=== PATIENT | female | born 1970 | race Caucasian/White ===

== ENCOUNTER 2020-01-21 16:31 | Emergency (ER) | payer OTHER, SELFPAY ==
[2020-01-21 16:32] VITALS: BP 101/59; PULSE 115; RESP 20; TEMP 35.9; BMI 36.0
--- NOTE | 2020-01-21 17:29 | EKG12_ITS ---
Test Reason : ABD PAIN Blood Pressure : / mmHG Vent. Rate : 099 BPM Atrial Rate : 099 BPM P-R Int : 130 ms QRS Dur : 074 ms QT Int : 350 ms P-R-T Axes : 026 021 013 degrees QTc Int : 449 ms Normal sinus rhythm Nonspecific T wave abnormality Abnormal ECG Confirmed by ANNETTE SIERRA ([id number]), legal editor JOÃO OROZCO ([id number]) on 01/23/2020 3:03:30 PM Referred By: Confirmed By:ANNETTE SIERRA
[2020-01-21] MEDS: Mag Hydrox/Al Hydrox/Simeth 30 ML UDC PO (17:51)
[2020-01-21] MEDS: Ondansetron 4 MG/2 ML Vial IV (17:52)
[2020-01-21 17:54] LABS: Absolute Lymphocyte Count 1.22 X10^3/uL (0.83-4.51); Absolute Neutrophil Count 12.7 X10^3/uL (2.0-7.7); Basophil# 0.06 X10^3/uL; Basophil% 0.4 % (0-1); Eosinophil# 0.09 X10^3/uL; Eosinophils% 0.6 % (0-5); Hematocrit 43.2 % (37-47); Hemoglobin 14.2 g/dL (12.0-15.0); Lymphocyte # 1.22 X10^3/ul (4.0); Lymphocyte % 8.1 % (19-41); Mean Corp Hgb Conc 32.9 g/dL (32-36); Mean Corpuscular Hgb 31.5 pg (27.0-32.0); Mean Corpuscular Volume 95.8 fL (81-99); Mean Platelet Vol. 9.7 fl (6.2-12.0); Monocyte# 0.97 X10^3/uL; Monocyte% 6.4 % (0-10); NRBC Flagged by Analyzer 0 % (0-5); Neutrophil # 12.65 X10^3/uL (2.7-7.7); Neutrophil % 84.2 % (47-70); Platelet Count 391 K/mm3 (150-450); RBC Distribution Width CV 11.7 % (11.6-14.6); RBC Distribution Width SD 41.3 fl (35.1-43.9); Red Blood Count 4.51 M/mm3 (4.2-5.4)
[2020-01-21 18:07] LABS: AST(SGOT) 39 U/L (15-37); Alanine Aminotransfer ALT/SGPT 55 U/L (13-56); Albumin, Serum 3.9 g/dL (3.2-5.0); Alkaline Phosphatase 101 U/L (45-117); Anion Gap 6 (5-15); BUN 13 mg/dL (7-18); BUN/Creat Ratio 12.5 RATIO (10-20); Calcium,Total 9.5 mg/dL (8.5-10.1); Chloride 106 mmol/L (98-107); Creatinine, Serum 1.04 mg/dL (0.55-1.02); EST Glomerular Filtration Rate 59 mL/min (>60); Est Glom Filt Rate - Afr Amer 72 mL/min (>60); Estimated Creatinine Clearance 62.93 ml/min; Globulin 3.9 g/dL (2.2-4.2); Glucose 102 mg/dL (74-106); Lipase 126 U/L (73-393); Protein, Total 7.8 g/dL (6.4-8.2); Sodium Level 139 mmol/L (136-145)
--- NOTE | 2020-01-21 19:09 | ED.DCSUM_ITS ---
- ER Visit Summary Date of Service: 01/21/20 Chief Complaint: Abdominal pain History of Present Illness: The patient is a 49 F presenting with abdominal pain. Patient states this started earlier this morning. She states she ate a breakfast burrito which she believed was gluten-free. Her pain started foll owing this meal. She has had nausea, vomiting, diarrhea. She has history of celiac disease and typically watches her diet. She denies chest pain or shortness of breath. Denies fever. Denies other complaints. Physical Examination: Vitals are stable. Patient is afebrile. Alert no acute distress. HEENT exam is unremarkable. Neck is supple. Lungs are clear and equal bilaterally. Heart is regular rate and rhythm. Abdomen is soft nontender nondistended. No rebound or guarding. Extremities are unremarkable. Skin is warm and dry. No focal neurologic deficit. Remainder of exam is unremarkable. Emergency Department Course and Treatment: EKG is sinus rate of 99 with nonspecific T wave changes. CBC shows a white count of 15.0. Chemistries unremarkable other than AST 39. Lipase is 126. Troponin is negative. Patient was given Zofran, GI cocktail. On reevaluation she is feeling much improved. Repeat troponin was obtained and is negative. Patient feels improved and is comfortable with discharge home. She will follow-up with her primary care physician. Advised return to ED for worsening complaints. Disposition: Discharge home Impression: Abdominal pain This note was generated with [employer] dictation software. It may contain incorrect words, spelling, and punctuation that were not noted in review of the chart prior to signing ED Disposition - Plan for ED Patient: Referrals: Care Physician,No Primary [Primary Care Provider] -
[2020-01-21 19:46] VITALS: BP 113/79; PULSE 98; RESP 16; TEMP 36.8; O2SAT 95
[2020-01-21 20:33] VITALS: BP 113/79; RESP 14; O2SAT 99
--- NOTE | 2020-01-21 20:34 | ED.DEP ---
ED Disposition - Plan for ED Patient: Instructions: ED Abdominal Pain Unkn Cause Fem Referrals: Baldo Medina DO [NON CLINICAL AFFILIATE] -
== END 2020-01-21 20:47 | disposition home or self-care (01) ==
LOC: ED 17:48
PROVIDERS: Emergency Provider Emergency Medicine
DX: R10.9 Unspecified abdominal pain (principal); R11.2 Nausea with vomiting, unspecified; R19.7 Diarrhea, unspecified
CPT/HCPCS: 80053; 83690; 84484; 85025; 93005; 96374; 99283; A4216; J2405

== ENCOUNTER 2020-11-30 12:08 | Emergency (ER) | payer OTHER, SELFPAY ==
[2020-11-30 12:08] VITALS: BP 109/70; PULSE 65; RESP 15; TEMP 36.4; O2SAT 99; BMI 34.4
[2020-11-30] MEDS: 0.9% Normal Saline 1,000 ML 1000 ML IV (13:21)
[2020-11-30 13:22] LABS: Absolute Lymphocyte Count 0.81 X10^3/uL (0.83-4.51); Basophil# 0.02 X10^3/uL; Basophil% 0.2 % (0-1); Hematocrit 44.4 % (37-47); Hemoglobin 14.9 g/dL (12.0-15.0); Lymphocyte # 0.81 X10^3/ul (4.0); Mean Corp Hgb Conc 33.6 g/dL (32-36); Mean Corpuscular Hgb 32.7 pg (27.0-32.0); Mean Corpuscular Volume 97.6 fL (81-99); Mean Platelet Vol. 10.3 fl (6.2-12.0); Monocyte% 2.2 % (0-10); NRBC Flagged by Analyzer 0 % (0-5); Neutrophil # 7.99 X10^3/uL (2.7-7.7); Neutrophil % 88.3 % (47-70); Platelet Count 324 K/mm3 (150-450); RBC Distribution Width CV 11.9 % (11.6-14.6); RBC Distribution Width SD 42.4 fl (35.1-43.9); Red Blood Count 4.55 M/mm3 (4.2-5.4); White Blood Count 9.1 K/mm3 (4.4-11.0)
[2020-11-30] MEDS: Ondansetron 4 MG/2 ML Vial IV (13:22)
[2020-11-30] MEDS: Morphine 4 MG/ML Syringe IV (13:22)
--- NOTE | 2020-11-30 13:33 | ED.DCSUM_ITS ---
History of Present Illness Chief Complaint: Nausea/Vomiting Informant: Patient, Significant Other Onset: Hours Context: Sudden Onset Timing: Continuous Quality: Nausea and vomiting with bilateral upper abdominal pain Location: Bilateral upper abdominal pain Current Severity: Mild Maximum Severity: Moderate Worsened by: Vomiting Relieved by: Nothing Associated Symptoms: Chills Narrative: Patient is a 50-year-old woman who presents with bilateral upper abdominal pain with nausea and vomiting that started at 0300. She states she is vomiting more than 10 times. Emesis has greenish-yellow appearance. She denies intolerance to any foods. She denies history of liver or gallbladder disease. She denies blood or coffee-ground in her emesis. She had one bowel movement that was formed today. She denies fever. She does report malaise and weakness. She denies ocular, visual auditory symptoms. She denies cardiac symptoms. She denies respiratory symptoms. She denies dysuria, frequency, urgency or hematuria. There is no history of trauma. Prior similar symptoms: No Recent Illness/Hospitalization: No - Past Medical History (1) No significant past medical history Status: Acute Past Medical History - Allergies and Home Meds Allergies/Adverse Reactions: Allergies No Known Allergies Allergy (Verified 01/21/20 16:35) Primary Care Physician: Care Physician,No Primary [Primary Care Provider] - Prior records reviewed: Yes Surgical History: no surgical history Lives: With Family Smoking Status: Never smoker Alcohol: Rare Drugs: None Review of Systems General: Reports: Chills, Malaise. Denies: Fever, Subjective, Sweats Eyes: Denies: Visual changes - bilaterally, Blurred Vision - bilaterally ENT: Denies: Rhinorrhea, Sore throat Cardiovascular: Denies: Chest pain, Palpitations Respiratory: Denies: Dyspnea, Cough, Dyspnea on exertion Gastrointestinal: Reports: Abdominal pain, Nausea, Vomiting. Denies: Diarrhea, Constipation, Melena, Hematochezia Genitourinary: Denies: Dysuria, Hematuria, Frequency Musculoskeletal: Denies: Myalgias, Arthralgias, Neck pain, Back pain, Swelling, Extremity Pain, -, - Skin: Denies: Rash, Wounds Neurological: Denies: Headache, Weakness, Numbness Hematologic: Denies: Easy bruising, Easy bleeding Physical Exam Vital Signs/Narrative: Vital Signs Temp Pulse Resp BP Pulse Ox 11/30/20 12:08 97.6 F L 65 15 109/70 99 Inital Vital Signs reviewed: Yes General: Well nourished, Well developed, Obese Head: Normocephalic, Atraumatic Eyes: Perrl, EOMI. Negative for: Pale conjunctiva, Scleral icterus ENT: No rhinorrhea, TM's clear, Dry mucous membranes Neck: Supple, Nontender, No lymphadenopathy, No JVD Cardiovascular: Regular rate, Regular rhythm, No murmurs, Normal S1, Normal S2 Respiratory: No distress, CTA bilaterally Abdomen: Soft, Nontender, Nondistended, No masses, Hypoactive bowel sounds. Negative for: Normal bowel sounds, Hepatomegaly, Splenomegaly, Mass, Pulsatile mass Rectal: Deferred Back: Nontender, Normal Inspection Extremities: Nontender, No edema Skin: Normal color, No rash Neurological: Alert, Oriented x3, Cranial nerves II-XII grossly intact, Normal Strength, Normal Sensation Psychological: Normal affect, Normal Mood Diagnostic/Tx/Re-eval Laboratory Results 11/30/20 11/30/20 12:34 12:34 WBC 9.1 RBC 4.55 Hgb 14.9 Hct 44.4 MCV 97.6 MCH 32.7 H MCHC 33.6 RDW Std Deviation 42.4 RDW Coeff of Adelso 11.9 Plt Count 324 MPV 10.3 Immature Gran % (Auto) 0.300 Neut % (Auto) 88.3 H Lymph % (Auto) 9.0 L [place] % (Auto) 2.2 Eos % (Auto) 0.0 Baso % (Auto) 0.2 Absolute Neuts (auto) 8.0 H Absolute Lymphs (auto) 0.81 L Nucleated RBC % 0 Sodium 141 Potassium 3.6 Chloride 108 H Carbon Dioxide 27.0 Anion Gap 6 BUN 10 Creatinine 0.92 Estim Creat Clear Calc 70.35 Est GFR (MDRD) Af Amer 83 Est GFR (MDRD) Non-Af 68 BUN/Creatinine Ratio 10.9 Glucose 121 H Calcium 8.8 Total Bilirubin 0.50 Direct Bilirubin 0.11 AST 26 ALT 54 Alkaline Phosphatase 95 Total Protein 7.3 Albumin 3.9 Globulin 3.4 Lipase 92 Patient was reassessed at 1500. She is had no vomiting. She feels better. She looks better. She is no longer pale. She has color to her face. Plan is to discharge with prescription for Bentyl and Zofran. - Medical Decision Making With upper abdominal pain wrapping around her back with nausea and vomiting need to rule out liver disease, biliary disease versus viral infectious disease. IV was established. She is clinically dehydrated and received 1 L of normal saline. She was medicated with Zofran and morphine. Appropriate blood work was ordered. ED Disposition - Plan for ED Patient: Disposition: Home or Assisted Living Diagnosis: Nausea and vomiting, Dehydration, Acute bilateral upper abdominal pain Instructions: ED Vomiting (Adult) Prescriptions: Dicyclomine HCl [Bentyl] 20 mg PO TIDAC #10 cap Transmission Status: Pending to [id number] Ondansetron [Zofran Odt] 4 mg PO Q8H PRN PRN #5 tab PRN Reason: Nausea Transmission Status: Pending to [id number] Referrals: Care Physician,No Primary [Primary Care Provider] - Toby Baldwin MD [STAFF PHYSICIAN] - 3-5 Days if not improving Additional Instructions: Since you do not have a primary care physician you were assigned to Dr. Toby Baldwin.
[2020-11-30 13:55] LABS: AST(SGOT) 26 U/L (15-37); Alanine Aminotransfer ALT/SGPT 54 U/L (13-56); Albumin, Serum 3.9 g/dL (3.2-5.0); Alkaline Phosphatase 95 U/L (45-117); Anion Gap 6 (5-15); BUN 10 mg/dL (7-18); BUN/Creat Ratio 10.9 RATIO (10-20); Bilirubin, Direct 0.11 mg/dL (0.00-0.30); Calcium,Total 8.8 mg/dL (8.5-10.1); Chloride 108 mmol/L (98-107); Creatinine, Serum 0.92 mg/dL (0.55-1.02); EST Glomerular Filtration Rate 68 mL/min (>60); Est Glom Filt Rate - Afr Amer 83 mL/min (>60); Estimated Creatinine Clearance 70.35 ml/min; Globulin 3.4 g/dL (2.2-4.2); Glucose 121 mg/dL (74-106); Lipase 92 U/L (73-393); Potassium 3.6 mmol/L (3.5-5.1); Protein, Total 7.3 g/dL (6.4-8.2); Sodium Level 141 mmol/L (136-145)
[2020-11-30 15:12] VITALS: BP 109/77; PULSE 62; RESP 15; O2SAT 98
== END 2020-11-30 15:17 | disposition home or self-care (01) ==
PROVIDERS: Emergency Provider Emergency Medicine
DX: R11.2 Nausea with vomiting, unspecified (principal); E86.0 Dehydration; R10.11 Right upper quadrant pain; R10.12 Left upper quadrant pain
CPT/HCPCS: 80048; 80076; 83690; 85025; 96361; 96374; 96375; 99284; A4216; J2405

== ENCOUNTER 2021-09-11 00:36 | Emergency (ER) | payer OTHER, SELFPAY ==
[2021-09-11 00:36] VITALS: BP 116/65; PULSE 86; RESP 18; TEMP 36.6; O2SAT 99; BMI 32.6
--- NOTE | 2021-09-11 00:53 | CT_ITS ---
STUDY: CT ABDOMEN AND PELVIS WITH CONTRAST REASON FOR EXAM: Female, 51 years old. Pain RADIATION DOSAGE (If Supplied By Facility): CTDIvol = ( 14.61 ) mGy, DLP = ( 1166.12 ) mGycm TECHNIQUE: Transaxial images were obtained from the dome of the diaphragm to the symphysis pubis without oral contrast. IV 100mL Isovue-370 was administered. Sagittal and coronal images were reconstructed. Individualized dose optimization techniques were used for this CT. COMPARISON: None. FINDINGS: The visualized lung bases are unremarkable. The visualized portions of the heart are within normal limits. Normal liver. Normal gallbladder and extrahepatic biliary system. Normal spleen. Normal pancreas. Normal bilateral adrenal glands. Normal right kidney. Normal left kidney. There is a small hiatal hernia. Normal small intestine. Normal colon. The appendix is visualized and appears normal. Normal abdominal aorta. Normal inferior vena cava. Normal retroperitoneum. Normal urinary bladder. Normal abdominal wall. Normal osseous structures. CT/Abdomen/Pelvis W IV Cont ONLY IMPRESSION: There is a small hiatal hernia. Electronically Signed: Lulu Gaffney MD at 1:37 EST Tel , Service support ,
[2021-09-11] MEDS: Morphine 4 MG/ML Syringe IV (01:06)
[2021-09-11] MEDS: 0.9% Normal Saline 1,000 ML 1000 ML IV (01:06)
[2021-09-11 01:07] LABS: Absolute Lymphocyte Count 1.81 X10^3/uL (0.83-4.51); Absolute Neutrophil Count 4.5 X10^3/uL (2.0-7.7); Basophil# 0.05 X10^3/uL; Basophil% 0.7 % (0-1); Eosinophil# 0.07 X10^3/uL; Hematocrit 39.1 % (37-47); Lymphocyte # 1.81 X10^3/ul (0.83-4.51); Mean Corp Hgb Conc 33.2 g/dL (32-36); Mean Corpuscular Hgb 32.3 pg (27.0-32.0); Mean Corpuscular Volume 97.3 fL (81-99); Monocyte# 0.53 X10^3/uL; Monocyte% 7.6 % (0-10); NRBC Flagged by Analyzer 0 % (0-5); Neutrophil # 4.47 X10^3/uL (2.7-7.7); Neutrophil % 64.4 % (47-70); Platelet Count 318 K/mm3 (150-450); RBC Distribution Width CV 11.9 % (11.6-14.6); Red Blood Count 4.02 M/mm3 (4.2-5.4)
[2021-09-11] MEDS: Ondansetron 4 MG/2 ML Vial IV ×2 (01:07→02:47)
--- NOTE | 2021-09-11 01:13 | EDS_ITS ---
HPI HPI - GI History of Present Illness Chief Complaint: Abd Pain Narrative Narrative: Patient denies significant past medical history presents with nausea, vomiting, and diffuse abdominal pain that is crampy in nature since 930 yesterday evening. She states she last ate at around 7 PM. She denies any past abdominal surgical history. She is not having diarrhea. She vomited 4 times without any blood in her emesis. No exacerbating or alleviating symptoms to her abdominal pain. Her abdomen does feel bloated and distended. It radiates from the epigastrium upward. She has had this pain for the last 4 hours. She presents to the emergency department with her mother because it continues. She feels nauseated. She denies any dysuria or hematuria. No problems with bowel movements. No fevers or chills. [facility] Medical History Acid reflux Home Medications dicyclomine 20 mg PO TID #20 tab 09/11/21 [Rx Last Taken Unknown] omeprazole [Prilosec] 20 mg PO DAILY 09/11/21 [History Last Taken Unknown] ondansetron 4 mg PO Q6H PRN #14 tab 09/11/21 [Rx Last Taken Unknown] Allergy/AdvReac Type Severity Reaction Status Date / Time No Known Allergies Allergy Verified 09/11/21 00:38 Social History Smoking Status: Current some day smoker tobacco type: e-cigarettes ROS ROS ED ROS Narrative Constitutional: No fever, no chills. HEENT: No sore throat. No neck pain. No loss of vision. No rhinorrhea. Cardiovascular: No chest pain. No palpitations. No pedal edema. Respiratory: No cough, no shortness of breath. Abdominal: Positive diffuse, crampy abdominal pain. Positive nausea. 4 episodes of vomiting. No hematemesis. Abdominal bloating and distention. Genitourinary: No dysuria. No hematuria. Musculoskeletal: No myalgias. No arthralgias. Neurologic: No headaches. No dizziness. No lightheadedness. Skin: No rash. No change in color. Psychiatric: No depression. No anxiety. EXAM Physical Exam Narrative Exam Narrative: Afebrile. Vital signs noted. HEENT: Normocephalic. Atraumatic. PERRL, EOMI. Neck soft and supple. No point tenderness or step off. Cardiovascular: Regular rate and rhythm. No murmurs, rubs, or gallops appreciated. Respiratory: No tachypnea. Lungs clear to auscultation bilaterally. Gastrointestinal: Abdomen soft, diffuse tenderness, with normoactive bowel sounds. Mild tenderness in epigastrium and periumbilical area, negative Alvarado sign no rebound or guarding. No pain over McBurney's point. Neurological: Awake. Alert. Nonfocal, nonlateralizing. Skin: No rash. Normal color. No pallor. Musculoskeletal: No pedal edema. Full range of motion extremities. Const Vital Signs: 09/11/21 00:36 Temperature 97.8 F Temperature Source Temporal Pulse Rate 86 Respiratory Rate 18 Blood Pressure 116/65 Blood Pressure Mean 82 Pulse Ox 99 Oxygen Delivery Method Room Air MDM MDM MDM Narrative Medical decision making narrative: Comprehensive work-up was pursued. She was administered morphine and ondansetron and a liter of normal saline. She has normal white count of 7.0. Hemoglobin stable at 13.0. Normal platelet count of 318. CMP shows chloride slightly elevated at 110, normal sodium of 141. Creatinine 1.0 with a BUN of 10. Glucose appropriately elevated at 126 with a normal anion gap of 6. LFTs are grossly unremarkable. Lipase normal at 88. Urinalysis shows no evidence of infection. Her CT of the abdomen and pelvis with IV contrast shows a small hiatal hernia. She is able to ambulate to the bathroom. Upon repeat examination she states that her epigastric pain was starting to return, and radiate upward. She was given a GI cocktail. She then became nauseated. She was administered Bentyl and Zofran. Additionally I obtained an EKG which demonstrates normal sinus rhythm at 68 bpm without ectopy or acute ST changes. As today is , she was given take-home packets of Zofran and Bentyl. She still takes omeprazole. She will call gastroenterology on Monday. Given her negative work-up here and a negative CT, I feel she can be discharged safely home. Disposition is discharged home in stable condition. Lab Data Attestation: I reviewed the patient's lab results. Labs: Laboratory Results - last 24 hr 09/11/21 09/11/21 09/11/21 01:00 01:00 01:40 WBC 7.0 RBC 4.02 L Hgb 13.0 Hct 39.1 MCV 97.3 MCH 32.3 H MCHC 33.2 RDW Std Deviation 43.0 RDW Coeff of Adelso 11.9 Plt Count 318 MPV 10.0 Immature Gran % (Auto) 0.300 Neut % (Auto) 64.4 Lymph % (Auto) 26.0 [place] % (Auto) 7.6 Eos % (Auto) 1.0 Baso % (Auto) 0.7 Absolute Neuts (auto) 4.5 Absolute Lymphs (auto) 1.81 Nucleated RBC % 0 Sodium 141 Potassium 4.1 Chloride 110 H Carbon Dioxide 25.0 Anion Gap 6 BUN 10 Creatinine 1.05 H Estim Creat Clear Calc 60.95 Est GFR (MDRD) Af Amer 71 Est GFR (MDRD) Non-Af 58 L BUN/Creatinine Ratio 9.5 L Glucose 126 H Calcium 8.9 Total Bilirubin 0.40 AST 16 ALT 29 Alkaline Phosphatase 78 Total Protein 6.6 Albumin 3.4 Globulin 3.2 Albumin/Globulin Ratio 1.1 Lipase 88 Urine Color Yellow Urine Clarity Clear Urine pH 8.0 Ur Specific [place] 1.010 Urine Protein Negative Urine Glucose (UA) Normal Urine Ketones Negative Urine Occult Blood Negative Urine Nitrite Negative Urine Bilirubin Negative Urine Urobilinogen Normal Ur Leukocyte Esterase Negative Urine RBC 0 SEEN Urine WBC 0 SEEN Ur Squamous Epith Cells 0 SEEN Urine Bacteria 0 SEEN Urine Mucus 0 SEEN Radiography Diagnostic Testing: Clinical Impression(s) from Imaging Studies Abdomen/Pelvis CT 09/11/21 00:53 IMPRESSION: There is a small hiatal hernia. Electronically Signed: Lulu Gaffney MD at 1:37 EST Tel , Service support , Discharge Plan Triage Chief Complaint: Abd Pain ED Provider: Thai Nava Dx/Rx/DC Orders Clinical Impression: Abdominal pain, Hernia, hiatal Instructions: ED Abdominal Pain Unkn Cause Fem, ED Hiatal Hernia Prescriptions: New ondansetron 4 mg tablet,disintegrating 4 mg PO Q6H PRN (Reason: nausea and vomiting) Qty: 14 RF: 0 dicyclomine 20 mg tablet 20 mg PO TID Qty: 20 RF: 0 No Action omeprazole [Prilosec] 20 mg Capsule,Delayed Release(Dr/Ec) 20 mg PO DAILY RF: 0 Primary Care Provider: Care Physician,No Primary Referrals: FriendSilvio DO [STAFF PHYSICIAN] - 09/13/21 Care Physician,No Primary [Primary Care Provider] - Disposition Disposition: Home, Self Care
[2021-09-11 01:28] LABS: ALB/GLOB Ratio 1.1 RATIO (0.9-2.4); AST(SGOT) 16 U/L (15-37); Alanine Aminotransfer ALT/SGPT 29 U/L (13-56); Albumin, Serum 3.4 g/dL (3.2-5.0); Alkaline Phosphatase 78 U/L (45-117); Anion Gap 6 (5-15); BUN 10 mg/dL (7-18); BUN/Creat Ratio 9.5 RATIO (10-20); Calcium,Total 8.9 mg/dL (8.5-10.1); Chloride 110 mmol/L (98-107); Creatinine, Serum 1.05 mg/dL (0.55-1.02); EST Glomerular Filtration Rate 58 mL/min (>60); Est Glom Filt Rate - Afr Amer 71 mL/min (>60); Estimated Creatinine Clearance 60.95 ml/min; Globulin 3.2 g/dL (2.2-4.2); Glucose 126 mg/dL (74-106); Lipase 88 U/L (73-393); Potassium 4.1 mmol/L (3.5-5.1); Protein, Total 6.6 g/dL (6.4-8.2); Sodium Level 141 mmol/L (136-145)
[2021-09-11 01:45] LABS: Bacteria 0 SEEN /hpf (None Seen); Mucous, Urine 0 SEEN /hpf (<or=2+); Red Blood Cells-Urine 0 SEEN /hpf (0-5); Squamous Epithelial Cells - UA 0 SEEN /hpf (5-10); White Blood Cells 0 SEEN /hpf (0-5)
[2021-09-11 01:49] LABS: Color, Urine Yellow (Yellow); Glucose, Dipstick Normal (Normal); Ketone-Dipstick Negative (Negative); Leukocyte Esterase-Dipstick Negative /ul (Negative); Nitrite-Dipstick Negative (Negative); Occult Blood-Urine Negative /ul (Negative); Protein-Dipstick Negative (Negative); Urine Bilirubin Dipstick Negative (Negative); Urine Clarity Clear (Clear); Urine Urobilinogen Normal (Normal)
[2021-09-11] MEDS: Mag Hydrox/Al Hydrox/Simeth 30 ML UDC PO (02:37)
--- NOTE | 2021-09-11 02:45 | EKG12_ITS ---
Test Reason : ABD PAIN Blood Pressure : / mmHG Vent. Rate : 068 BPM Atrial Rate : 068 BPM P-R Int : 150 ms QRS Dur : 084 ms QT Int : 408 ms P-R-T Axes : 008 027 008 degrees QTc Int : 433 ms Normal sinus rhythm Low voltage QRS Nonspecific T wave abnormality Abnormal ECG Confirmed by JOAN PILLAI, MARIANNA ([id number]), editor department RAND LEIJA ([id number]) on 09/14/2021 9:43:03 AM Referred By: JAIRON Confirmed By:MARIANNA FRANCO MD
[2021-09-11] MEDS: Dicyclomine 20 MG/2 ML Vial IM (02:47)
[2021-09-11] MEDS: Dicyclomine 10 MG Capsule 60 MG PO (04:18)
[2021-09-11] MEDS: Ondansetron ODT 4 MG Tablet 16 MG PO (04:18)
[2021-09-11 04:21] VITALS: BP 114/74; PULSE 87; RESP 18; O2SAT 99
== END 2021-09-11 04:21 | disposition home or self-care (01) ==
PROVIDERS: Emergency Provider Emergency Medicine
DX: R10.9 Unspecified abdominal pain (principal); R11.2 Nausea with vomiting, unspecified; K44.9 Diaphragmatic hernia without obstruction or gangrene; K21.9 Gastro-esophageal reflux disease without esophagitis; F17.210 Nicotine dependence, cigarettes, uncomplicated
CPT/HCPCS: 74177; 80053; 81001; 83690; 85025; 93005; 96361; 96372; 96374; 96375; 99283; J7030; Q9967; A4216; J2405

== ENCOUNTER 2021-09-26 18:38 | Emergency (ER) | payer OTHER, SELFPAY ==
[2021-09-26 18:40] VITALS: BP 122/74; PULSE 69; RESP 16; TEMP 36.4; O2SAT 100; BMI 31.3
--- NOTE | 2021-09-26 18:56 | EDS_ITS ---
HPI History of Present Illness Chief Complaint: Nausea/Vomiting Informant: patient and family Narrative Narrative: 51-year-old female presents to the emergency room with a 7-hour history of vomiting and nausea. She states that symptoms began around noon include cramping abdominal pain. She has tried Bentyl and Zofran with no relief and has vomited about 6 times. No fevers or diarrhea. Family states they do not know what to do for her because she is in such severe agony. Patient states she was here with similar symptoms had negative labs and CAT scan. She states that she was fine in between episodes [facility] Medical History Acid reflux Home Medications dicyclomine 20 mg PO TID #20 tab 09/11/21 [Rx Last Taken Unknown] omeprazole [Prilosec] 20 mg PO DAILY 09/11/21 [History Last Taken Unknown] ondansetron 4 mg PO Q6H PRN #14 tab 09/11/21 [Rx Last Taken Unknown] oxycodone-acetaminophen 1 tab PO Q6H PRN PRN 3 Days #12 tablet 09/26/21 [Rx Last Taken Unknown] promethazine 25 mg PO Q6H PRN PRN #10 tablet 09/26/21 [Rx Last Taken Unknown] Allergy/AdvReac Type Severity Reaction Status Date / Time No Known Allergies Allergy Verified 09/26/21 18:41 Social History Smoking Status: Current some day smoker tobacco type: e-cigarettes ROS ROS ED Constitutional Constitutional ED: Denies chills, fever(s) or weight loss Eyes Eyes: Denies change in vision or diplopia ENT ENT ED: Denies ear pain, rhinorrhea or sore throat Cardiovascular Cardiovascular: Denies chest pain, orthopnea, palpitations or racing heartbeat Respiratory/Chest Respiratory/Chest: Denies cough, dyspnea or orthopnea Gastrointestinal Gastrointestinal: Reports abdominal pain, nausea and vomiting; Denies diarrhea Genitourinary Genitourinary ED: Denies dysuria, hematuria or urinary frequency Musculoskeletal Musculoskeletal: Denies arthralgias or myalgias Integumentary Denies abscess or rash Neurologic Neurologic: Denies headache(s) or weakness Psychiatric Psychiatric: Denies anxiety, depression, suicidal ideation or suicidal thoughts Endocrine Endocrinology: Denies polydipsia, polyphagia or polyuria Allergic/Immunologic Allergic/Immunologic ED: Denies mouth swelling, tongue swelling or urticaria EXAM Physical Exam Const Vital Signs: 09/26/21 18:40 09/26/21 21:50 Temperature 97.6 F L Temperature Source Temporal Pulse Rate 69 78 Respiratory Rate 16 16 Blood Pressure 122/74 H 115/82 H Blood Pressure Mean 90 93 Pulse Ox 100 98 Oxygen Delivery Method Room Air Room Air Positive well nourished and well developed General Appearance ED: well developed HEENT Reports normocephalic, head/scalp atraumatic, TM's clear and moist mucous m embranes Negative for trauma Tympanic Membrane ED: Yes TM's clear Eyes PERRL and EOMs intact bilaterally Neck no lymphadenopathy, supple and no JVD Resp normal respiratory effort and clear to auscultation bilaterally Cardio regular rate, regular rhythm and no murmurs GI non-tender Auscultation: normoactive bowel sounds Palpation: soft and tender epigastric and RUQ; Negative for guarding or rebound tenderness present Back/Spine no CVA tenderness and normal ROM Extremity normal to inspection General Extremety ED: Negative for edema General Extremity: Negative for edema Neuro oriented x3 and CN's II-XII intact bilaterally Sensorium / Orientation: alert Motor Exam: strength 5/5 throughout Psych mental status grossly normal Mood & Affect: Negative for depressed or tearful Skin no rashes or lesions noted and no wounds MDM MDM MDM Narrative Medical decision making narrative: Patient's vital signs are stable. She does not appear clinically dehydrated. Patient's white count is elevated at 17 with 90% neutrophils. Liver enzymes negative. Glucose [address] of the abdomen pelvis was obtained. This demonstrated distended gallbladder with mild wall thickening and some surrounding inflammation. There is some mild stranding extending inferiorly to the right pericolic gutter. Patient received Bentyl and Reglan. Repeat examination finds the patient to be feeling better. She has some mild tenderness in the right upper quadrant but without guarding or rebound. Given the above findings I spoke with her on-call surgeon Dr. Ansari. At this point patient will have pain and nausea medication written for her. She will follow- up tomorrow in the office for probable gallbladder ultrasound repeat examination and possible repeat white count. Options such as being admitted into the hospital discussed with the patient and given the current pandemic and the options for early follow-up tomorrow patient is in agreement with the above plan. Return if worsening or concerns. Lab Data Attestation: I reviewed the patient's lab results. Labs: Laboratory Results - last 24 hr 09/26/21 09/26/21 19:05 19:05 WBC 17.0 H RBC 4.36 Hgb 14.6 Hct 42.2 MCV 96.8 MCH 33.5 H MCHC 34.6 RDW Std Deviation 42.0 RDW Coeff of Adelso 11.8 Plt Count 339 MPV 9.8 Immature Gran % (Auto) 0.400 Neut % (Auto) 90.0 H Lymph % (Auto) 5.5 L [place] % (Auto) 3.8 Eos % (Auto) 0.1 Baso % (Auto) 0.2 Absolute Neuts (auto) 15.3 H Absolute Lymphs (auto) 0.93 Nucleated RBC % 0 Sodium 140 Potassium 3.9 Chloride 106 Carbon Dioxide 26.0 Anion Gap 8 BUN 12 Creatinine 0.91 Estim Creat Clear Calc 70.32 Est GFR (MDRD) Af Amer 84 Est GFR (MDRD) Non-Af 69 BUN/Creatinine Ratio 13.2 Glucose 127 H Calcium 9.2 Total Bilirubin 0.70 AST 17 ALT 27 Alkaline Phosphatase 80 Total Protein 7.1 Albumin 3.7 Globulin 3.4 Albumin/Globulin Ratio 1.1 Lipase 54 L Radiography Diagnostic Testing: Clinical Impression(s) from Imaging Studies Abdomen/Pelvis CT 09/26/21 20:18 IMPRESSION: Distended gallbladder with mild wall thickening and surrounding inflammation suspicious for cholecystitis. Recommend gallbladder ultrasound.. Colonic diverticulosis. No evidence of obstruction. Individualized dose optimization techniques were used for this CT. at 2234 Reported and signed by: Go Liu MD Electronically Signed: Go Liu MD at 22:32 EST Tel , Service support , ADDENDUM: 09/26/21 2241 IMPRESSION: Distended gallbladder with mild wall thickening and surrounding inflammation suspicious for cholecystitis. Recommend gallbladder ultrasound.. Colonic diverticulosis. No evidence of obstruction. Individualized dose optimization techniques were used for this CT. at 2234 Reported and signed by: Go Liu MD N.B. : Geneva Gaston/MYRANDA menezes OT, confirmed on 09/26/2021 22:36:59 (ET) that the healthcare facility has received the radiology report. Electronically Signed: Go Liu MD at 22:32 EST Tel , Service support , Discharge Plan Triage Chief Complaint: Nausea/Vomiting ED Provider: Toan Bahena Dx/Rx/DC Orders Clinical Impression: Abdominal pain, Vomiting Prescriptions: New oxycodone-acetaminophen [oxycodone-acetaminophen] 1 TABLET tablet 1 tab PO Q6H PRN PRN (Reason: Pain) 3 Days Qty: 12 RF: 0 promethazine [promethazine] 25 MG tablet 25 mg PO Q6H PRN PRN (Reason: Nausea) Qty: 10 RF: 0 No Action omeprazole [Prilosec] 20 mg Capsule,Delayed Release(Dr/Ec) 20 mg PO DAILY RF: 0 ondansetron 4 mg tablet,disintegrating 4 mg PO Q6H PRN (Reason: nausea and vomiting) Qty: 14 RF: 0 dicyclomine 20 mg tablet 20 mg PO TID Qty: 20 RF: 0 Primary Care Provider: Care Physician,No Primary Referrals: Kateryna Ansari MD [STAFF PHYSICIAN] - 1 Day (Be sure to call the office at 8 AM tomorrow morning for repeat examination tomorrow) Care Physician,No Primary [Primary Care Provider] - Disposition Disposition: Home, Self Care
[2021-09-26] MEDS: Metoclopramide 10 MG/2 ML Vial IV (19:10)
[2021-09-26] MEDS: Dicyclomine 20 MG/2 ML Vial IM (19:12)
[2021-09-26 19:18] LABS: Absolute Lymphocyte Count 0.93 X10^3/uL (0.83-4.51); Absolute Neutrophil Count 15.3 X10^3/uL (2.0-7.7); Basophil# 0.03 X10^3/uL; Basophil% 0.2 % (0-1); Eosinophil# 0.01 X10^3/uL; Eosinophils% 0.1 % (0-5); Hematocrit 42.2 % (37-47); Hemoglobin 14.6 g/dL (12.0-15.0); Lymphocyte # 0.93 X10^3/ul (0.83-4.51); Lymphocyte % 5.5 % (19-41); Mean Corp Hgb Conc 34.6 g/dL (32-36); Mean Corpuscular Hgb 33.5 pg (27.0-32.0); Mean Corpuscular Volume 96.8 fL (81-99); Mean Platelet Vol. 9.8 fl (6.2-12.0); Monocyte# 0.65 X10^3/uL; Monocyte% 3.8 % (0-10); NRBC Flagged by Analyzer 0 % (0-5); Neutrophil # 15.32 X10^3/uL (2.7-7.7); Platelet Count 339 K/mm3 (150-450); RBC Distribution Width CV 11.8 % (11.6-14.6); Red Blood Count 4.36 M/mm3 (4.2-5.4)
[2021-09-26 19:36] LABS: ALB/GLOB Ratio 1.1 RATIO (0.9-2.4); AST(SGOT) 17 U/L (15-37); Alanine Aminotransfer ALT/SGPT 27 U/L (13-56); Albumin, Serum 3.7 g/dL (3.2-5.0); Alkaline Phosphatase 80 U/L (45-117); Anion Gap 8 (5-15); BUN 12 mg/dL (7-18); BUN/Creat Ratio 13.2 RATIO (10-20); Calcium,Total 9.2 mg/dL (8.5-10.1); Chloride 106 mmol/L (98-107); Creatinine, Serum 0.91 mg/dL (0.55-1.02); EST Glomerular Filtration Rate 69 mL/min (>60); Est Glom Filt Rate - Afr Amer 84 mL/min (>60); Estimated Creatinine Clearance 70.32 ml/min; Globulin 3.4 g/dL (2.2-4.2); Glucose 127 mg/dL (74-106); Lipase 54 U/L (73-393); Potassium 3.9 mmol/L (3.5-5.1); Protein, Total 7.1 g/dL (6.4-8.2); Sodium Level 140 mmol/L (136-145)
--- NOTE | 2021-09-26 20:18 | CT_ITS ---
HISTORY: abdominal pain and vomiting TECHNIQUE: Helically acquired images were obtained of the abdomen and pelvis following the intravenous administration of ml of 100mL Isovue-370 Iodinated contrast. No Oral contrast was administered. Coronal and sagittal reformats obtained. A radiation dose optimization technique was used for this scan. COMPARISON: September 11, 2021 FINDINGS: # of images incl. paperwork: 442 LUNG BASES: Unremarkable. LIVER T BILIARY TRACT: Gallbladder distended with mild wall thickening and surrounding inflammatory stranding. Mild stranding extends inferiorly along the right pericolic gutter. No acute hepatic finding. ADRENAL GLANDS: Unremarkable. SPLEEN: Unremarkable. PANCREAS: Unremarkable. KIDNEYS/URETERS/BLADDER: No hydronephrosis or perinephric inflammation. Unremarkable ureters and bladder. LYMPH NODES: No suspicious adenopathy. STOMACH, SMALL AND LARGE BOWEL: Small to moderate hiatal hernia. No acute gastric finding. No small bowel obstruction or gross wall thickening. Normal appendix. Few scattered colonic diverticuli without inflamed diverticulum to suggest diverticulitis. ASCITES/FREE AIR: No free fluid or free air. AORTA: Atherosclerosis without ectasia. PELVIS: Unremarkable uterus. No evidence of adnexal mass. MUSCULOSKELETAL: No acute osseous finding. CT/Abdomen/Pelvis W IV Cont ONLY IMPRESSION: Distended gallbladder with mild wall thickening and surrounding inflammation suspicious for cholecystitis. Recommend gallbladder ultrasound.. Colonic diverticulosis. No evidence of obstruction. Individualized dose optimization techniques were used for this CT. at 2234 Reported and signed by: Go Liu MD Electronically Signed: Go Liu MD at 22:32 EST Tel , Service support ,
[2021-09-26 21:50] VITALS: BP 115/82; PULSE 78; RESP 16; O2SAT 98
== END 2021-09-26 23:59 | disposition home or self-care (01) ==
PROVIDERS: Emergency Provider Emergency Medicine; Visit Provider Emergency Medicine
DX: R11.2 Nausea with vomiting, unspecified (principal); R10.811 Right upper quadrant abdominal tenderness; K21.9 Gastro-esophageal reflux disease without esophagitis; F17.290 Nicotine dependence, other tobacco product, uncomplicated; Z79.899 Other long term (current) drug therapy
CPT/HCPCS: 74177; 80053; 83690; 85025; 96372; 96374; 99283; Q9967; A4216

== ENCOUNTER 2021-09-30 05:49 | Day surgery (SDC) | payer OTHER, SELFPAY ==
--- NOTE | 2021-09-27 08:35 | PCM.HP.BLA ---
History and Physical Date of Admission: 09/30/21 Kandace Morgan - 1970 REFERRING PHYSICIAN: Thai Nava, * CHIEF COMPLAINT: Consult (hernia) HPI: The patient is a 51 year old female presents with abdominal pain. She complains of epigastric and substernal burning pain. She had presented to [facility] ED on 09/11/2021 and 09/26/2021 for intractable nausea and emesis. She underwent CT scan which revealed inflammatory changes of the gallbladder. She has also noted acid reflux and heartburn and is noted to have sliding hiatal hernia.. ? PAST MEDICAL HISTORY Abdominal pain, generalized ? Abnormal weight gain ? Depressive disorder, not elsewhere classified ? Diarrhea ? Esophageal reflux ? Hernia, hiatal ? Pain in joint, multiple sites ? Gluten allergy PAST SURGICAL HISTORY COLONOSCOPY W/BX ? 12/04/08 EGD W/O BRSH SPECIMEN W/BX ? 12/04/08 Tonsillectomy ? Current Outpatient Medications Protonix trimethoprim-polymyxin (POLYTRIM) 10,000 unit- 1 mg/mL ophthalmic solution Use 1 Drop in the right eye four times daily. (Patient not taking: Reported on 09/21/2021 phenazopyridine (PYRIDIUM) 200 mg tablet Take 1 tablet by mouth three times daily as needed. (Patient not taking: Reported on 12/04/2020 Benzonatate (TESSALON) 200 mg capsule Take 200 mg by mouth twice daily as needed for Cough. (Patient not taking: Reported on 12/04/2020 zofran ALLERGIES: Codeine and Wheat PERSONAL HISTORY: Smoking status: Former Smoker ? ? Packs/day: 2.00 ? ? Types: Cigarettes ? ? Quit date: 09/18/2017 ? ? ears since quittin.0 ? Smokeless tobacco: Never Used Vaping Use ? Vaping Use: Never used Substance Use Topics ? Alcohol use: No ? Drug use: No ? FAMILY HISTORY non contributory ? ? REVIEW OF SYSTEMS: General: The patient denies fatigue, denies weight loss, denies weight gain, denies feeling hot, and denies feelings of cold. Eyes: The patient denies glaucoma, denies eye injury/surgery, wears glasses or contacts. Ear/Nose/Throat: The patient denies allergies, denies hayfever, denies ear infections, and denies bloody noses. Cardiovascular: The patient denies chest pain, denies heart disease, denies high blood pressure,denies cardiac stent, denies prior heart attack, denies irregular heart beat, denies high cholesterol, denies poor circulation, denies heart failure, other cardiac issues, denies claudication, denies cold feet, denies peripheral arterial stent. Respiratory: The patient denies tuberculosis, denies pneumonia, denies frequent cough, denies pulmonary embolism, denies shortness of breath, and denies coughing up blood. Gastrointestinal: The patient denies difficulty swallowing, notes acid reflux, denies ulcers, notes vomiting, denies jaundice/hepatitis, denies gallbladder problems, denies black or tarry stools, denies hemorrhoids, denies bleeding from rectum, denies diverticulitis, notes constipation, notes diarrhea, denies loss of stool control, and denies hernias. Kidney/Bladder: The patient denies kidney stones, denies urine infections, and denies bloody urine. Skin: The patient denies a history of skin cancer, denies bleeding/changing moles, and denies a history of skin rash. Neurologic: The patient denies a history of epilepsy/convulsions, denies headaches, denies head/spinal injuries, and denies stroke/TIA. Psychiatric: The patient denies psychiatric medications, denies depression, and denies voices, denies substance abuse. Endocrine: The patient denies thyroid disorders, denies diabetes, and denies hormonal problems. Hematologic: The patient denies a history of bruising, denies bleeding, and denies anemia, denies blood clots. Infections: The patient denies a history of measles and mumps, denies rheumatic fever, and denies sexually transmitted diseases. Musculoskeletal: The patient denies back pain/injury, denies back problems, denies sciatica, denies knee/foot trouble, denies arthritis, or denies gout. When was patient's last Mammogram screening? Patient states has not had one. Last Colonoscopy: 2008 ?? PHYSICAL EXAMINATION: General: The patient is 51 year old female, well nourished, well hydrated in no acute distress. The patient is oriented to time, place, and person. VITALS: Blood pressure 98/62, pulse 100, temperature 36.4 ?C (97.5 ?F), height 170.2 cm (5' 7), weight 91.6 kg (202 lb), last menstrual period 09/11/2013, SpO2 99 %. Body mass index is 31.64 kg/m?. Head ? Normocephalic. EOM intact with sclera clear and no icterus noted. Neck - supple with no jugular venous distention noted. Trachea is midline. Lungs ? normal respiratory excursion. No labored breathing noted, such as retractions. No cough heard. Abdomen ? benign. Extremities ? no pitting edema noted. Skin ? normal skin integrity. Neurological ? gait normal, no focal deficits noted. Psych ? calm and appropriate RADIOLOGIC STUDIES: As Noted ? IMPRESSION: intractable nausea and emesis, abnormal findings on CT scan of gallbladder ? PLAN: I have discussed the above with the patient. I have discussed the above with the patient. I have offered laparoscopic cholecystectomy, possible cholangiograms. She was offered further evaluation with US gallbladder, HIDA scan, she defers this. I have explained the procedure to the patient. I have counseled the patient as to the risks of the procedure, including but not limited to: infection, bleeding, injury to any blood vessels/nerves, scar tissue, injury to any intrabdominal organs, injury to kidney/ureters, injury to bowel/bladder, injury to the common bile duct/biliary tree, bile leakage, intraabdominal abscess/bleeding, hernias at incisional sites, wound infections, possible open procedure, complications of anesthesia, non resolution of symptoms etc. the patient understands. She wishes to proceed. I have answered all questions to the patient?s satisfaction and the patient has no further questions.? ? ? Kateryna Ansari MD
[2021-09-30] VITALS (11 sets, daily range): BP systolic 97–113; BP diastolic 63–81; PULSE 73–98; RESP 16–20; TEMP 36.3–37.2; O2SAT 90–97; BMI 30.7
--- NOTE | 2021-09-30 | GALL_PTH ---
PATIENT: ARTEMIO HATHAWAY LOC: [facility] [place] U#:[id number] AGE/SX: 51/F ROOM: RE09/30/[address]: Dr. Kateryna Ansari MD : 1970 BED: DIS: 09/30/2021 SPEC #: [id number] RECD: 09/30/21 13:27 STATUS: JOHNNY KOKO #: [id number] RUSSELL: 09/30/21 00:[address]: Kateryna Ansari DEPT: SURGICAL PATHOLOGY RECD BY: Samson Solitario ENTERED: 09/30/21 13:27 SP TYPE: HODAN CASTILLO DR: No Primary Care Phys Tissues: Gallbladder, NOS Procedures: Surgery Specimen Level III HEADER OPERATION: Laparoscopic cholecystectomy with IOC PRE-OP DIAGNOSIS: Intractable nausea and emesis, abnormal findings on CT scan of gallbladder TISSUE SUBMITTED: Gallbladder MICROSCOPIC DIAGNOSIS Gallbladder, cholecystectomy: Acute and chronic hemorrhagic and ulcerated cholecystitis and cholelithiasis. SJ:brandee 10/01/2021 MICROSCOPIC DESCRIPTION Slides are reviewed. GROSS DESCRIPTION Received is one container labeled with the patient's name and designated gallbladder. The specimen consists of a previously opened gallbladder measuring 10 x 5 x 2 cm. The external surface is smooth and glistening. Focally, it is granular, hemorrhagic and contains cautery artifact. The lumen of the gallbladder contains yellow-green mucoid bile and multiple yellow calculi averaging 0.7 cm in greatest dimension. The mucosa is reddish-saenz in color and free of mass lesions. The gallbladder wall averages 0.3 cm in thickness and is free of mass lesions. Bobbin Washer sections of the gallbladder and the cystic duct at margin of resection are submitted in one cassette. / AM:brandee 09/30/2021 TC:2 CPT: 03764
--- NOTE | 2021-09-30 05:54 | EKG12_ITS ---
Test Reason : PRE OP Blood Pressure : / mmHG Vent. Rate : 092 BPM Atrial Rate : 092 BPM P-R Int : 146 ms QRS Dur : 076 ms QT Int : 340 ms P-R-T Axes : 046 009 -73 degrees QTc Int : 420 ms Normal sinus rhythm Nonspecific T wave abnormality Abnormal ECG When compared with ECG of 11-SEP-2021 02:56, No significant change was found Confirmed by JOAN PILLAI, MARIANNA ([id number]), legal editor RAND LEIJA ([id number]) on 10/05/2021 9:38:27 AM Referred By: Kateryna Ansari Confirmed By:MARIANNA FRANCO MD
[2021-09-30] MEDS: Lactated Ringers 1,000 ML 75 ML IV ×4 (06:22→11:35)
--- NOTE | 2021-09-30 07:30 | RAD_ITS ---
STUDY: INTRAOPERATIVE INTRA CHOLANGIOGRAM. REASON FOR EXAM: Female, 51 years old. Laparoscopic cholecystectomy. FLUOROSCOPY TIME (if supplied): ( 6.3 seconds ) minutes/seconds. One image was submitted. TECHNIQUE: An intraoperative cholangiogram was performed by the surgeon. One image was submitted. COMPARISON: None. FINDINGS: The visualized common bile duct is unremarkable. There is free flow of contrast into the duodenum. RAD/Cholangiogram/ O R,Initial IMPRESSION: Unremarkable intraoperative cholangiogram. Electronically Signed: Bruno Bello MD at 8:59 EST , Service support ,
[2021-09-30] MEDS: Cefazolin 2 GM in 0.9% Normal Saline 100 ML IV (07:35)
[2021-09-30] MEDS: Bupivacaine 0.25% 30 ML Vial (09:10)
--- NOTE | 2021-09-30 09:11 | OP.PCM_ITS ---
Report of Operation Date of Procedure: 09/30/21 Pre-Operative Diagnosis: Nausea/emesis, RUQ abdominal pain, abnormal CT scan of gallbladder Post-Operative Diagnosis: cholelithiasis with obstruction, acute on chronic cholecystitis, normal IOC Surgery/Procedure Performed:: laparoscopic cholecystectomy with intraoperative cholangiograms Description of Surgical Findings:: cholelithiasis with hydrops/obstruction, acute on chronic cholecystitis,normal intraoperative cholangiograms Surgeon: Kateryna Ansari inspector shells: Pauline Jones Type of Anesthesia: General Anesthesiologist: Eduardo Davila Specimen's removed: gallbladder and contents Drains: 15 Fr ALONSO drain round in RUQ abdomen Estimated Blood Loss (mL): 20 ml Fluids Replaced: 1400 ml RL Description of Procedure: After informed consent was given, the patient was brought to the Operating Room. Appropriate time out protocol was followed. The patient was placed in the supine position. The patient was then placed under general endotracheal anesthesia by the anesthesia provider. The abdomen was then prepped with a sterile surgical skin preparation and sterile surgical drapes were placed. An area superior to the umbilical dimple was grasped with penetrating clamps and the skin and subcutaneous tissues were infiltrated with 0.25% marcaine. A skin incision was then made with a 15 blade scalpel. The anterior abdominal wall was elevated and a Veress needle was carefully inserted into the intraabdominal cavity. It was checked to be in the proper position with a normal saline drop test. A CO2 pneumoperitoneum was then created. Once this was achieved, then the Veress needle was removed and an 11mm trocar was placed in its stead. A 10mm laparoscope was then inserted into the trocar and careful attention was directed to the intraabdominal contents. There was no evidence of injury to any intraabdominal organs from insertion of the Veress needle or the trocar. Under direct visualization, a 5mm subxiphoid trocar and two lateral 5mm right subcostal trocars were placed. The skin and subcutaneous tissues at these sites were infiltrated with 0.25% marcaine prior to placement of these trocars. Attention was then directed to the right upper quadrant of the abdomen. The omentum was covering over the gallbladder due to inflammatory adhesions. The gallbladder was grossly distended and tense. Irrigation suction device was used to aspirate the gallbladder contents which was noted to be clear bilious fluid, thus consistent with hydrops. The gallbladder was noted to filled with stones. Graspers were placed in the lateral trocars to grasp the distal aspect of the gallbladder and direct it cephalad and to grasp the gallbladder at Duke?s pouch and direct it laterally. Dissection then began on the proximal gallbladder continuing down to the area of the triangle of Calot to bluntly dissect out the cystic duct. There was a large amount of inflammation in this area which took some time to bluntly dissect. The neck of the gallbladder was thus identified. Continued blunt dissection was done to define a segment of the cystic duct. A clip was then placed on the neck of the gallbladder. A small ductotomy was then made. A Ranfac catheter was brought in through a separate skin incision and placed into the cystic duct. An intraoperative cholangiogram was performed under fluoroscopy. The xray revealed no lesions in the common bile duct, arborization of the biliary tree, and good flow into the duodenum. The Ranfac catheter was then removed and two clips were placed proximal to the ductotomy and the cystic duct was then transected. The cystic artery was visualized and bluntly isolated and then two clips were placed proximally and one clip distally and then it was transected between the proximal and distal clips. The gallbladder was then from the liver bed using electrocautery. There was dense adhesions of the gallbladder wall posteriorly due to inflammation, this took some time. Once from the liver bed, it was placed in an Endobag. It was then brought out via the umbilical port. It was then forwarded to pathology for analysis. The liver bed was carefully examined. There was no evidence of bile leakage or active bleeding. The cystic duct stump and cystic artery stump had their clips intact and there was no evidence of bile leakage or bleeding. Because of the large amount of inflammation in the area, a 15 Fr round drain was placed in the RUQ abdomen. It was sutured to the abdominal wall skin with nylon suture. The remainder of the abdomen was grossly normal. The CO2 was released and all trocars removed intact. The periumbilical fascia was approximated with a [id number] 0 vicryl suture. All skin incisions were closed with 4-0 monocryl in a subdermal fashion. Cavilol and Steristrips were used to reinforce the skin closure. Sterile dressings were applied to all wounds. Sponge, needle and instrument count was verified and correct at time of skin closure. The patient was extubated and brought to the Recovery Room in stable condition. Complications none noted Admit VTE Documentation VTE Present on Admission: Yes VTE Mechan Device Prophylaxis: SCD's
--- NOTE | 2021-09-30 09:33 | EX.PCM.DISCH ---
Discharge Instructions Follow Up Care Test Results: Test results from this visit will be discussed in further detail at your follow-up appointment, if applicable. Discharge Plan Admission Attending Provider: Kateryna Ansari Primary Care Provider: Care Physician,Lora Primary Instructions Additional Instructions / Restrictions: Recommended pain control regimen - May take 600 mg ibuprofen (Motrin) and then in 3-4 hours, may take 650 mg acetaminophen (Tylenol), then in 3-4 hours may take 600 mg ibuprofen, then in 3-4 hours may take 650 mg acetaminophen and so on for 2-3 days May take narcotic pain medication for pain that is not controlled by above and at night for comfort through the night Leave dressings in place. Leave drain in place, the nurses will show you how to empty it and reconstitute the suction the bulb device. May shower, do not scrub in the areas of the dressings as they may unravel. Cover the drain area with a large towel to prevent it from getting overly wet. Do not soak - no tub baths/swimming Ice applied to areas of discomfort may help No lifting/pushing/pulling greater than 20 pounds for two weeks. Regular diet as tolerated, drink plenty of fluids. Avoid carbonated beverages for a few days as this will cause abdominal bloating and thus discomfort after your surgery. If you feel you are getting constipated (due to narcotic medications), may take over the counter laxative such as Ex-Lax. Please call my office for an appointment to see me in next week - Monday or Monday or Monday. Office number is If any questions, please call my office at and ask the steam plant operator for the general surgery nurses desk Discharge Orders/Prescriptions Prescriptions: New oxycodone-acetaminophen 5-325 mg tablet 1 tab PO BID PRN PRN (Reason: pain) 5 Days Qty: 10 RF: 0 No Action ondansetron 4 mg tablet,disintegrating 4 mg PO Q6H PRN (Reason: nausea and vomiting) Qty: 14 RF: 0 dicyclomine 20 mg tablet 20 mg PO TID Qty: 20 RF: 0 oxycodone-acetaminophen [oxycodone-acetaminophen] 1 TABLET tablet 1 tab PO Q6H PRN PRN (Reason: Pain) 3 Days Qty: 12 RF: 0 promethazine [promethazine] 25 MG tablet 25 mg PO Q6H PRN PRN (Reason: Nausea) Qty: 10 RF: 0 pantoprazole 40 mg Tablet,Delayed Release (Dr/Ec) 40 mg PO BID RF: 0 Referrals / Follow Up: Care Physician,No Primary [Primary Care Provider] - Disposition Disposition (needs filled in before D/C Order can be placed): Home, Self Care
[2021-09-30] MEDS: oxyCODONE 5 MG Tablet PO (12:13)
[2021-09-30] MEDS: Scopolamine 1mg/72hr Patch 1 PATCH TD (12:13)
== END 2021-09-30 23:59 | disposition home or self-care (01) ==
LOC: SDC 05:52 → AC 05:53
PROVIDERS: Referring Provider Surgery; Visit Provider Surgery
PROC: (CPT 47610; principal; 2021-09-30 07:10)
DX: K80.01 Calculus of gallbladder with acute cholecystitis with obstruction (principal); Z87.891 Personal history of nicotine dependence
CPT/HCPCS: 47563; 00790; 74300; 76000; 88304; 93005; J7120; J2405